=== PATIENT | female | born 1970 | race African-American/Black ===

== ENCOUNTER 2022-12-25 17:32 | Emergency (ER) | payer SELFPAY ==
[~2022-12-25] VITALS: Ht 172.7 cm; Wt 71.7 kg
--- NOTE | 2022-12-25 17:35 | NUR ---
RECEIVED PT 56 YRS FEMALE CAME FROM HOME S/P TA ONE HRS AGO C/O PAIN ON LT CHEST AND ARM AND SKIN APPRATION FROM SITE BELT
--- NOTE | 2022-12-25 17:45 | NUR ---
SEEN BY PROVIDER
[2022-12-25 17:51] VITALS: BP 189/112
--- NOTE | 2022-12-25 17:55 | NUR ---
seen by provider spoke with pt
[2022-12-25] MEDS ORDERED: KETOROLAC TROMETHAMINE INJ 60 MG/2 ML VIAL IM ONE (18:00)
--- NOTE | 2022-12-25 18:00 | NUR ---
pt refused toradole shut and requsted to leave
[2022-12-25] MEDS ORDERED: KETOROLAC TROMETHAMINE INJ 30 MG/ML VIAL ONE (18:05)
--- NOTE | 2022-12-25 18:18 | NUR ---
Patient eloped from facility. ER MD notified.
== END 2022-12-25 18:27 | disposition left against medical advice (07) ==
LOC: EDBD 17:34 → ER 17:34
DX: M25.512 Pain in left shoulder (principal); M54.2 Cervicalgia; R10.12 Left upper quadrant pain; R07.81 Pleurodynia; I10 Essential (primary) hypertension; V49.50XA Passenger injured in collision with unspecified motor vehicles in traffic accident, initial encounter; Y93.89 Activity, other specified; Y92.89 Other specified places as the place of occurrence of the external cause; Y99.8 Other external cause status
CPT/HCPCS: 99283; J1885